=== PATIENT | male | born 1955 | race Caucasian/White ===

== ENCOUNTER 2017-08-26 09:35 | Emergency (ER) | payer OTHER ==
[2017-08-26 10:18] LABS: Urine Blood 1+ (NEG); Urine Glucose NEGATIVE (NEG); Urine Protein 3+ (NEG)
[2017-08-26 10:21] LABS: Absolute Lymphocytes (CBC) 1.3 K/uL (0.7-4.9); Absolute Monocytes 0.7 K/uL (0.1-1.3); Absolute Neutrophil 5.1 K/uL (1.8-8.0); Basophils % 0.6 % (0-1.3); Eosinophils % 0.9 % (0-4.4); Hematocrit 48.1 % (39.6-49.0); Lymphocytes % 18.4 % (15.3-44.8); MCH 31.7 pg (27.0-35.0); MCV 94.5 fL (80-100); MPV 10.4 fL (7.6-11.3); Monocytes % 9.2 % (3.3-12.3); RBC Red Blood Cell Count 5.09 M/uL (4.33-5.43)
[2017-08-26] MEDS ORDERED: ENALAPRILAT 1.25 MG/ML VIAL IV ONE ×2 (10:29→11:23)
[2017-08-26 10:34] LABS: Potassium 3.8 mEq/L (3.6-5.0)
[2017-08-26 10:40] LABS: Albumin 4.3 g/dL (3.2-5.5); Bilirubin Direct 0.2 mg/dL (0-0.2); Bilirubin Total 1.1 mg/dL (0.3-1.2); Protein, Total 7.9 g/dL (6.0-8.3)
--- NOTE | 2017-08-26 10:49 | RAD REPORT ---
EXAM DESCRIPTION: CT - Head Brain Wo Cont - 08/26/2017 10:37 am CLINICAL HISTORY: Fall, head injury. COMPARISON: None. TECHNIQUE: All CT scans are performed using dose optimization technique as appropriate and may inclu de automated exposure control or mA/KV adjustment according to patient size. FINDINGS: No intracranial hemorrhage, hydrocephalus or extra-axial fluid collection.Moderate general ized brain atrophy is present with moderate periventricular and deep white matter chronic microvascul ar ischemic changes.No areas of brain edema or evidence of midline shift. The paranasal sinuses and mastoids are clear. The calvarium is intact. IMPRESSION: No acute intracranial abnormality.
--- NOTE | 2017-08-26 10:50 | RAD REPORT ---
EXAM DESCRIPTION: RAD - Chest Single View - 08/26/2017 10:31 am CLINICAL HISTORY: Fall, chest pain. COMPARISON: None. FINDINGS: Portable technique limits examination quality. The lungs are mildly underinflated but grossly clear. The heart is normal in size. No displaced fract ures. IMPRESSION: No acute intrathoracic process suspected.
[2017-08-26] MEDS ORDERED: AMLODIPINE 5 MG TAB ONE (11:39)
--- NOTE | 2017-08-26 11:58 | EDPHYS ---
Physician Documentation [facility] Name: Ric Bone Age: 61 yrs Sex: Male : 1955 Arrival Date: 08/26/2017 Time: 09:38 Bed 7 Private MD: ED Physician Kermit Johnson HPI: 08/26 11:53 This 61 yrs old Male presents to ER via EMS with complaints of High Blood gs Pressure. 11:53 The patient has elevated blood pressure and discovered this at home. Onset: The gs symptoms/episode began/occurred 3 week(s) ago. Modifying factors: The symptoms are aggravated by discontinuation of meds, The symptoms are alleviated by prescription meds. Associated signs and symptoms: Pertinent positives: weakness. Severity of symptoms: At its worst the blood pressure was severe, incapacitating, in the emergency department the blood pressure is unchanged. The patient has experienced similar episodes in the past, a few times. The patient has not recently seen a physician. Historical: - Allergies: 09:41 No Known Allergies; ap3 - Home Meds: 09:41 None [Active]; ap3 - PMHx: 09:41 Hypertension; ap3 - PSHx: 09:41 Appendectomy; ap3 - Immunization history:: Pneumococcal vaccine is not up to date, Flu vaccine is not up to date. - Social history:: Smoking status: Patient/guardian denies using tobacco. ROS: 11:53 All other systems are negative. gs Exam: 11:53 Head/Face: Normocephalic, atraumatic. Eyes: Pupils equal round and reactive to light, gs extra-ocular motions intact. Lids and lashes normal. Conjunctiva and sclera are non-icteric and not injected. Cornea within normal limits. Periorbital areas with no swelling, redness, or edema. ENT: Nares patent. No nasal discharge, no septal abnormalities noted. Tympanic membranes are normal and external auditory canals are clear. Oropharynx with no redness, swelling, or masses, exudates, or evidence of obstruction, uvula midline. Mucous membranes moist. Neck: Trachea midline, no thyromegaly or masses palpated, and no cervical lymphadenopathy. Supple, full range of motion without nuchal rigidity, or vertebral point tenderness. No Meningismus. Chest/axilla: Normal chest wall appearance and motion. Nontender with no deformity. No lesions are appreciated. Cardiovascular: Regular rate and rhythm with a normal S1 and S2. No gallops, murmurs, or rubs. Normal PMI, no JVD. No pulse deficits. Respiratory: Lungs have equal breath sounds bilaterally, clear to auscultation and percussion. No rales, rhonchi or wheezes noted. No increased work of breathing, no retractions or nasal flaring. Abdomen/GI: Soft, non-tender, with normal bowel sounds. No distension or tympany. No guarding or rebound. No evidence of tenderness throughout. Back: No spinal tenderness. No costovertebral tenderness. Full range of motion. Skin: Warm, dry with normal turgor. Normal color with no rashes, no lesions, and no evidence of cellulitis. MS/ Extremity: Pulses equal, no cyanosis. Neurovascular intact. Full, normal range of motion. Neuro: Awake and alert, GCS 15, oriented to person, place, time, and situation. Cranial nerves II-XII grossly intact. Motor strength 5/5 in all extremities. Sensory grossly intact. Cerebellar exam normal. Normal gait. 11:53 Constitutional: The patient appears alert, awake. 11:53 Musculoskeletal/extremity: complains subjective weakness in left leg, normal hip flex ext, knee and ankle flex extend limping a little on gait probable peripheral neuropathy or arthritic hip, not central or spinal in origin.. Vital Signs: 09:41 BP 248 / 127; Pulse 81; Resp 19; Temp 97.7; Pulse Ox 97% ; Weight 104.33 kg; Height 5 jl7 ft. 9 in. (175.26 cm); Pain 0/10; 09:51 BP 204 / 118; Pulse 73; Resp 16; Pulse Ox 97% ; jl7 10:56 BP 160 / 104; Pulse 75; Resp 20; Pulse Ox 97% on R/A; ae1 11:06 BP 186 / 99; Pulse 70; Resp 16; Pulse Ox 98% on R/A; ae1 11:54 BP 180 / 98; Pulse 72; Resp 16 S; Pulse Ox 97% on R/A; jl7 12:45 BP 194 / 98; Pulse 70; Resp 16; Pulse Ox 98% on R/A; jl7 09:41 Body Mass Index 33.97 (104.33 kg, 175.26 cm) jl7 MDM: 10:04 Patient medically screened. 11:53 Differential diagnosis: hypertensive crisis, Malignant HTN, CVA. Data reviewed: vital gs signs, nurses notes. Response to treatment: the patient's symptoms have markedly improved after treatment, and as a result, I will discharge patient. 11:59 Physician consultation: Billy Alexander MD regarding htn, intermittent asymptomatic non gs sustained bigeminy, and will see patient in office. 08/26 09:57 Order name: Urine Dipstick--Ancillary (enter results); Complete Time: 10:47 sc 08/26 10:06 Order name: LFT's; Complete Time: 10:47 08/26 10:06 Order name: Magnesium; Complete Time: 10:47 08/26 10:06 Order name: Basic Metabolic Panel; Complete Time: 10:47 08/26 10:06 Order name: BNP; Complete Time: 10:47 08/26 10:06 Order name: CBC with Diff; Complete Time: 10:47 08/26 10:06 Order name: Troponin (emerg Dept Use Only); Complete Time: 10:47 08/26 10:06 Order name: XRAY Chest (1 view); Complete Time: 10:59 08/26 10:06 Order name: EKG; Complete Time: 10: 08/26 10:06 Order name: Cardiac monitoring; Complete Time: 10:07 08/26 10:06 Order name: CT Head Brain wo Cont; Complete Time: 10:59 08/26 10:06 Order name: EKG - Nurse/Tech; Complete Time: 10: 08/26 10:06 Order name: IV Saline Lock; Complete Time: 10: 08/26 10:06 Order name: Labs collected and sent; Complete Time: 10:17 08/26 10:06 Order name: O2 Per Protocol; Complete Time: 10: 08/26 10:06 Order name: O2 Sat Monitoring; Complete Time: 10: 08/26 10:06 Order name: Urine Dipstick-Ancillary (obtain specimen); Complete Time: 10: 08/26 13:03 Order name: Crutches; Complete Time: 13:03 jl7 Administered Medications: 10:11 Drug: Enalaprilat 1.25 mg Route: IV; Rate: bolus; Site: left antecubital; ae1 10:15 Follow up: Response: No adverse reaction; IV Status: Completed infusion jl7 10:55 Follow up: Response: Blood sugar is lowered ae1 12:58 Follow up: Response: Blood sugar is lowered; IV Status: Completed infusion ae1 11:06 Drug: Enalaprilat 1.25 mg Route: IV; Rate: bolus; Site: left antecubital; ae1 11:10 Follow up: Response: No adverse reaction; IV Status: Completed infusion jl7 12:58 Follow up: IV Status: Completed infusion ae1 12:58 Follow up: Response: Blood sugar is lowered ae1 11:20 Drug: amLODIPine 5 mg Route: PO; ae1 13:01 Follow up: Response: No adverse reaction jl7 Disposition: 08/26/17 11:57 Discharged to Home. Impression: Hypertensive heart disease. - Condition is Stable. - Discharge Instructions: Hypertension. - Prescriptions for Norvasc 10 mg Oral Tablet - take 1 tablet by ORAL route once daily; 30 tablet. Lisinopril 20 mg Oral Tablet - take 1 tablet by ORAL route once daily; 30 tablet. - Medication Reconciliation Form, Thank You Letter, Antibiotic Education, Prescription Opioid Use form. - Follow up: Private Physician; When: 2 - 3 days; Reason: Recheck today's complaints, Re-evaluation by your physician. Follow up: Billy Alexander MD; When: 2 - 3 days; Reason: Re-evaluation by your physician. Follow up: Horace Victor MD; When: 2 - 3 days; Reason: Re-evaluation by your physician. Signatures: Dispatcher [employer] EDAries Pisano, RN RN ae1 Sung Berkowitz RN RN jl7 Kermit Johnson MD MD gs Prokisch, Amanda ap3
--- NOTE | 2017-08-26 11:58 | ER ---
Nurse's Notes [facility] Name: Ric Bone Age: 61 yrs Sex: Male : 1955 Arrival Date: 08/26/2017 Time: 09:38 Bed 7 Private MD: Diagnosis: Hypertensive heart disease Presentation: 08/26 09:43 Presenting complaint: Patient states: he fell yesterday at noon, and doesn't have use ap3 of left leg since fall. Transition of care: patient was not received from another setting of care. Onset of symptoms was August 25, 2017. Care prior to arrival: IV initiated. 20 GA, in the left hand. 09:43 Method Of Arrival: EMS: [facility] ap3 09:50 Acuity: RABIA 3 jl7 Triage Assessment: 09:44 General: Appears comfortable, Behavior is calm, cooperative. Pain: Denies pain. Neuro: ap3 Level of Consciousness is awake, alert, obeys commands, Oriented to person, place, time, situation. Respiratory: Airway is patent. Historical: - Allergies: 09:41 No Known Allergies; ap3 - Home Meds: 09:41 None [Active]; ap3 - PMHx: 09:41 Hypertension; ap3 - PSHx: 09:41 Appendectomy; ap3 - Immunization history:: Pneumococcal vaccine is not up to date, Flu vaccine is not up to date. - Social history:: Smoking status: Patient/guardian denies using tobacco. Screenin:40 The patient has not been NPO before screening. The patient is currently on the jl7 following diet: Regular The patient is alert, able to follow commands. The patient does not exhibit slurred or garbled speech The patient is not exhibiting difficulty speaking. The patient does not exhibit difficulty understanding words. The patient is able to swallow own secretions with no drooling or need for suction. Patient tolerated one teaspoon of water. No drooling, immediate coughing, gurgling, or clearing of the throat was noted. The patient tolerated 90mL of water. No drooling, immediate coughing, gurgling, or clearing of the throat was noted. The patient passed the bedside swallow screening. Oral medications may be given as ordered. Contact Physician for further diet orders. Provider notified of bedside swallow screening results: Kermit Johnson MD. Fall Risk Fall in past 12 months (25 points). No secondary diagnosis (0 pts). IV access (20 points). Ambulatory Aid- None/Bed Rest/Nurse Assist (0 pts). Mental Status- Overestimates/Forgets Limitations (15 pts.). Total Salazar Fall Scale indicates High Risk Score (45 or more points). Fall prevention measures have been instituted. Side Rails Up X 2 Placed Close to Nursing Station Frequent Obs/Assessments Occuring As available patient and family educated on Fall Prevention Program and Strategies. 09:46 Abuse screen: Denies threats or abuse. Nutritional screening: No deficits noted. ap3 Tuberculosis screening: No symptoms or risk factors identified. Assessment: 09:40 General: Appears in no apparent distress. uncomfortable, Behavior is calm, cooperative, jl7 appropriate for age. Pain: Denies pain. Neuro: Level of Consciousness is awake, alert, obeys commands, Oriented to person, place, time, situation, Elevator Installer are equal bilaterally Moves all extremities. Speech is normal, Facial symmetry appears normal, Pupils are PERRLA. Cardiovascular: Heart tones S1 S2 present Patient's skin is warm and dry. Respiratory: Airway is patent Respiratory effort is even, unlabored, Respiratory pattern is regular, symmetrical, Breath sounds are clear bilaterally. GI: No signs and/or symptoms were reported involving the gastrointestinal system. : No signs and/or symptoms were reported regarding the genitourinary system. EENT: No signs and/or symptoms were reported regarding the EENT system. Derm: Skin is pink, warm \T\ dry. Musculoskeletal: No signs and/or symptoms reported regarding the musculoskeletal system. 10:23 Reassessment: Radiology at bedside obtaining chest x-ray. ae1 11:15 Reassessment: Dr. Johnson at bedside discussing plan of care. jl7 11:35 Reassessment: Pt ambulated from bathroom back to room with steady gait. jl7 12:30 Reassessment: Reassessment: Patient and/or family updated on plan of care and expected jl7 duration. Pain level reassessed. Patient is alert, oriented x 3, equal unlabored respirations, skin warm/dry/pink. 12:45 Reassessment: Patient ambulated with walker with RN assistance, patient wishes to speak ae1 with provider again. Provider notified. Provider at bedside, patient ambulated to restroom with walker. 13:00 Reassessment: Patient requests crutches instead of walker. Provider ok to provide ae1 crutches. Patient ambulated with crutches down [place]. Provided patient teaching on proper technique while ambulating with crutches. Patient ambulated with crutches assisted by CARLYLE Almaraz to ER jane. Patient states he is waiting for a ride home. Vital Signs: 09:41 BP 248 / 127; Pulse 81; Resp 19; Temp 97.7; Pulse Ox 97% ; Weight 104.33 kg; Height 5 jl7 ft. 9 in. (175.26 cm); Pain 0/10; 09:51 BP 204 / 118; Pulse 73; Resp 16; Pulse Ox 97% ; jl7 10:56 BP 160 / 104; Pulse 75; Resp 20; Pulse Ox 97% on R/A; ae1 11:06 BP 186 / 99; Pulse 70; Resp 16; Pulse Ox 98% on R/A; ae1 11:54 BP 180 / 98; Pulse 72; Resp 16 S; Pulse Ox 97% on R/A; jl7 12:45 BP 194 / 98; Pulse 70; Resp 16; Pulse Ox 98% on R/A; jl7 09:41 Body Mass Index 33.97 (104.33 kg, 175.26 cm) jl7 ED Course: 09:38 Patient arrived in ED. ae1 09:40 Sung Berkowitz RN is Primary Nurse. jl7 09:40 Patient has correct armband on for positive identification. Placed in gown. Bed in low jl7 position. Call light in reach. Side rails up X 1. gravity meter observer on. Pulse ox on. NIBP on. 09:40 Maintain EMS IV. Dressing intact. Site clean \T\ dry. Gauge \T\ site: 20 R AC. jl 7 09:44 Kermit Johnson MD is Attending Physician. gs 09:50 Triage completed. jl7 09:50 Arm band placed on right wrist. jl7 10:29 X-ray completed. Portable x-ray completed in exam room. Patient tolerated procedure kc2 well. 10:30 XRAY Chest (1 view) In Process Unspecified. EDMS 10:35 CT completed. Patient tolerated procedure well. Patient moved to CT via stretcher. Patient moved back from CT. 10:38 CT Head Brain wo Cont In Process Unspecified. EDMS 11:56 Billy Alexander MD is Referral Physician. 12:53 No provider procedures requiring assistance completed. IV discontinued, intact, jl7 bleeding controlled, No redness/swelling at site. Pressure dressing applied. 12:56 Horace Victor MD is Referral Physician. gs Administered Medications: 10:11 Drug: Enalaprilat 1.25 mg Route: IV; Rate: bolus; Site: left antecubital; ae1 10:15 Follow up: Response: No adverse reaction; IV Status: Completed infusion jl7 10:55 Follow up: Response: Blood sugar is lowered ae1 12:58 Follow up: Response: Blood sugar is lowered; IV Status: Completed infusion ae1 11:06 Drug: Enalaprilat 1.25 mg Route: IV; Rate: bolus; Site: left antecubital; ae1 11:10 Follow up: Response: No adverse reaction; IV Status: Completed infusion jl7 12:58 Follow up: IV Status: Completed infusion ae1 12:58 Follow up: Response: Blood sugar is lowered ae1 11:20 Drug: amLODIPine 5 mg Route: PO; ae1 13:01 Follow up: Response: No adverse reaction jl7 Output: 10:24 Urine: 200ml (Voided); Total: 200ml. ae1 Outcome: 11:57 Discharge ordered by . 12:53 Attestation : I agree with everything documented by Margo, Student Nurse. jl7 12:53 Discharged to home ambulatory, with crutches, . 12:53 Condition: stable 12:53 Discharge instructions given to patient, Instructed on discharge instructions, follow up and referral plans. medication usage, Demonstrated understanding of instructions, follow-up care, medications, Prescriptions given X 2. 13:21 Patient left the ED. ae1 Signatures: Dispatcher [employer] EDPR Dawood Jett Kelsie kc2 Aries Fountain RN RN ae1 Sung Berkowitz RN RN jl7 Kermit Johnson MD MD gs Prokisch, Amanda ap3 Corrections: (The following items were deleted from the chart) 09:48 09:43 Care prior to arrival: None. ap3 ap3 09:48 09:43 Care prior to arrival: None. IV initiated. 20 GA, in the left hand, ap3 ap3 09:48 09:47 Care prior to arrival: IV initiated. ap3 ap3 09:51 09:41 BP 248 / 127; Pulse 81bpm; Resp 19bpm; Pulse Ox 97.7%; Temp 97.7F; 104.33 kg; jl7 Height 5 ft. 9 in.; BMI: 33.9; Pain 0/10; ap3 13:03 12:53 Discharged to home ambulatory, with walker per pt request jl7 7 13:20 13:00 Reassessment: Patient requests crutches instead of walker. Provider ok to provide ae1 crutches. Patient ambulated with crutches down [place]. Provided patient teaching on proper technique while ambulating with crutches. ae1
--- NOTE | 2017-08-27 12:49 | EKG ---
Test Date: 2017-08-26 Test Time: 09:44:43 Associate Financial Advisor: RANDALL MEASUREMENT RESULTS: Intervals: Rate: 72 NE: 146 QRSD: 98 QT: 416 QTc: 455 [place]: P: 35 NE: 146 QRS: 15 T: 63 INTERPRETIVE STATEMENTS: Normal sinus rhythm Nonspecific T wave abnormality Abnormal ECG No previous ECG available for comparison Electronically Signed On 08-27-17 12:48:25 CDT by Leroy Ortiz
== END 2017-08-26 13:21 | disposition home or self-care (01) ==
LOC: ER 09:35
DX: I11.9 Hypertensive heart disease without heart failure (principal); I10 Essential (primary) hypertension
CPT/HCPCS: 36415; 70450; 71045; 80048; 80076; 81003; 83735; 83880; 84484; 85025; 93005; 96374; 99285